=== PATIENT | female | born 1980 | race Caucasian/White ===

== ENCOUNTER 2017-07-07 03:05 | Emergency (ER) | payer BC ==
[~2017-07-07] VITALS: Ht 162.6 cm; Wt 97.5 kg
[~2017-07-07 03:05] MED LIST: ABILIFY 2 MG2 MG; ALBUTEROL2.5 MG/3 M INH; AMBIEN 10 MG TA10 MG; ASPIR 8181 M1 PO; BENTYL; BENTYL 20 MG TA20 M1 PO; BENZTROPINE MESY2 MG; BIRTH CONTROL; CELEXA 20 MG TA20 M1; CLONAZEPAM; DEPAKOTE ER500 MG PO; DOXYCYCLINE 10100 M1 PO; DUONEB 2.5-0.5 M3 ML INH; ENPRESSE1 EACH PO; ERYTHROMYCIN250 MG; HYDROXYCHLOROQ200 M1 PO; HYOMAX-DT0.375 MG PO; LAMICTAL 25 MG25 M1; LEXAPRO; MAGNESIUM OXID200 MG PO; MAGNESIUM250 M1 PO; MEDROLDOSEPACK PO; MIDRIN CAPSULE1 CAP PO; MISCELLANEOUS; NAPROSYN500 MG PO; NATAZIA 28 TAB1 EACH PO; NEURONTIN 300300 M1 PO; NORCO 5-325 TA1 EACH PO; OMEPRAZOLE20 M2 PO; ORENCIA125 MG/1 M IM; OSTERA TABLET1 EAC1 PO; OXYBUTYNIN 5 MG5 M2; PORTIA1 EACH PO; PROAIR HFA8.5 GM INH; PROTONIX40 M4 PO; PROZAC20 MG PO; ROBAXIN500 MG PO; TRAZODONE HCL100 MG PO; TRILEPTAL 300300 MG PO; UNICOMPLEX M TA1 TA1 PO; VENTOLIN HFA 1818 GM INH; VICODIN 5-5001 EACH PO; VITAMIN B-12500 MCG PO; VITAMIN D1000 UNI1 PO; VITAMIN D31000 UNI2 PO; WELLBUTRIN; XANAX 0.25 MG0.25 MG PO; ZOFRAN 4 MG ORAL4 MG PO; ZOFRAN ODT4 MG PO; ZOLOFT 50 MG TA50 M1 PO; ZPAK PO; [UNRECOGNIZED DRUG - REMARK]
[2017-07-07] MEDS ORDERED: ARAVA20 MG (03:17)
[2017-07-07] MEDS ORDERED: TRILEPTAL150 MG (03:17)
[2017-07-07 03:46] LABS: ABSOLUTE EOSINOPHILS 0.1 thou/uL (0.0-0.7); ABSOLUTE LYMPHOCYTES 2.4 thou/uL (0.8-5.3); ABSOLUTE MONOCYTES 0.8 thou/uL (0.0-1.2); ABSOLUTE NEUTROPHILS 8.1 thou/uL (1.6-8.1); BASOPHILS 0.2 %; HEMATOCRIT 40.1 % (37.0-47.0); HEMOGLOBIN 13.4 gm/dL (12.0-15.0); LYMPHOCYTES 20.7 %; MCH 28.1 pg (26.0-34.0); MCHC 33.4 g/dL (28.0-37.0); MCV 84.3 fL (80.0-100.0); MONOCYTES 7.2 %; MPV 8.4 fl. (7.2-11.1); NUCLEATED RBCS 0 /100WBC; PLATELET COUNT* 270 thou/uL (150-400); POLYS 70.9 %; RBC 4.75 mil/uL (4.20-5.00); RDW-CV 14.3 % (10.5-14.5); WBC 11.4 thou/uL (4.0-11.0)
[2017-07-07 03:52] LABS: ANION GAP 11 mmol/L (7-16); BUN 12 mg/dL (7-18); CALCIUM 9.3 mg/dL (8.5-10.1); CHLORIDE 102 mmol/L (98-107); CO2 27 mmol/L (21-32); CREATININE 0.8 mg/dL (0.6-1.3); GLUCOSE 104 mg/dL (70-99); POTASSIUM 3.1 mmol/L (3.5-5.1); SODIUM 140 mmol/L (136-145)
[2017-07-07 03:56] LABS: ALBUMIN 3.6 g/dL (3.4-5.0); ALKALINE PHOSPHATASE 122 U/L (46-116); LIPASE 184 U/L (73-393); SGOT 46 U/L (15-37); SGPT 40 U/L (30-65); TOTAL BILIRUBIN 0.4 mg/dL (<0.1-1.0); TOTAL PROTEIN 7.4 g/dL (6.4-8.2)
[2017-07-07 03:58] LABS: TROPONIN-I LEVEL <0.06 ng/mL (<0.06)
[2017-07-07 04:18] LABS: INR 1.1; PROTIME 10.3 Seconds (9.20-11.50)
[2017-07-07 04:49] LABS: URINE BILIRUBIN NEGATIVE (Negative); URINE BLOOD NEGATIVE (Negative); URINE CLARITY CLEAR; URINE COLOR YELLOW; URINE GLUCOSE-RANDOM NEGATIVE (Negative); URINE KETONES NEGATIVE (Negative); URINE LEUKOCYTES-REFLEX NEGATIVE (Negative); URINE NITRITE-REFLEX NEGATIVE (Negative); URINE PROTEIN NEGATIVE (Negative); URINE UROBILINOGEN 0.2 E.U./dl (0.2-1.0)
[2017-07-07 04:59] LABS: AMP/METHAMP Negative (Negative); BARBITURATES Negative (Negative); BENZODIAZEPINES Negative (Negative); COCAINE Negative (Negative); METHADONE Negative (Negative); OPIATES POSITIVE (Negative); PCP Negative (Negative); THC Negative (Negative)
[2017-07-07] MEDS ORDERED: CARAFATE 1 GM TA1 GM PO (06:57)
[2017-07-07] MEDS ORDERED: HYDROCODON-ACE1 EA14 PO (06:57)
[2017-07-07] MEDS ORDERED: PREDNISONE50 MG PO (06:57)
[2017-07-07 07:10] VITALS: BP 124/45
--- NOTE | 2017-07-07 12:32 | EKG ---
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 : 1980 Requested By: Kayleigh Duffy Order Number: [id number] MD: Imer Guerrero Measurements Intervals [place] Rate: 103 P: 57 W[place]: 157 QRS: 67 QRSD: 86 T: -33 QT: 369 QTc: 483 Interpretive Statements Sinus tachycardia Borderline T abnormalities, inferior leads Compared to ECG 05/08/2014 10:08:07 T-wave abnormality still present Electronically Signed On 07-07-2017 12:31:55 BAT LATHE OPERATOR by Imer Guerrero [email or web address] <ELECTRONICALLY SIGNED> By: Imer Guerrero MD, [facility] 07/07/17 1231 310 9 Imer Guerrero MD, FACC /EPI
== END 2017-07-07 07:11 | disposition home or self-care (01) ==
LOC: M.ERS 03:05
PROVIDERS: Emergency Medicine
DX: R09.1 Pleurisy (principal); R10.9 Unspecified abdominal pain; K21.9 Gastro-esophageal reflux disease without esophagitis; J45.909 Unspecified asthma, uncomplicated; M06.9 Rheumatoid arthritis, unspecified; F31.9 Bipolar disorder, unspecified; Z90.49 Acquired absence of other specified parts of digestive tract; Z88.1 Allergy status to other antibiotic agents; Z88.2 Allergy status to sulfonamides; Z88.5 Allergy status to narcotic agent; Z91.040 Latex allergy status; Z88.8 Allergy status to other drugs, medicaments and biological substances

== ENCOUNTER → 2017-08-17 | Outpatient (CLI) | payer BC ==
[~2017-08-17] MED LIST changes: +ARAVA20 MG; +CARAFATE 1 GM TA1 GM PO; +HYDROCODON-ACE1 EA14 PO; +PREDNISONE50 MG PO; +TRILEPTAL150 MG
== END ==
LOC: M.MRI 12:54
DX: H53.9 Unspecified visual disturbance (principal); R20.0 Anesthesia of skin; R20.2 Paresthesia of skin; G95.9 Disease of spinal cord, unspecified; H46.9 Unspecified optic neuritis

== ENCOUNTER → 2017-08-18 | Outpatient (CLI) | payer BC | LOC: M.MRI 08-11 14:34 | DX: M51.27 Other intervertebral disc displacement, lumbosacral region (principal); M54.16 Radiculopathy, lumbar region; R20.2 Paresthesia of skin; G95.9 Disease of spinal cord, unspecified; H53.9 Unspecified visual disturbance; H46.9 Unspecified optic neuritis ==

== ENCOUNTER → 2019-02-22 | Outpatient (CLI) | payer BC ==
--- NOTE | 2019-02-22 14:48 | NUR ---
ARRIVED AMBULATORY MADE SELF COMFORTABLE. HISTORY REVIEWED. COPY OF PORT A CATH CARD MADE AND PLACED IN CHART. PT REPORT DIFFICULTY ACCESSING PORT AT ANOTHER HOSPITAL. PORT ASSESSED AND NO SIGN OF INFECTION NOTED. PORT NOTED TO SIGHTLY DOWNWARD. PORT ACCESSED WITH OUT DIFFICULTY. GOOD BRISK BLOOD RETURN NOTED AND FLUSHED WITH EASE. PORT FLUSHED AND DEACCESSED. TOLERATED WELL. DENIES QUESTIONS OR NEEDS AT DISCHARGE.
== END ==
LOC: M.INFUS 14:13
DX: Z45.2 Encounter for adjustment and management of vascular access device (principal)

== ENCOUNTER → 2019-04-19 | Outpatient (CLI) | payer BC | LOC: M.INFUS 03-22 13:00 | DX: Z45.2 Encounter for adjustment and management of vascular access device (principal) ==

== ENCOUNTER → 2019-06-03 | Outpatient (CLI) | payer BC | LOC: M.INFUS 05-17 14:00 | DX: Z45.2 Encounter for adjustment and management of vascular access device (principal) ==

== ENCOUNTER → 2019-07-02 | Outpatient (CLI) | payer BC ==
[2019-07-02 09:30] VITALS: BP 111/61
== END ==
LOC: M.INFUS 09:00
DX: Z45.2 Encounter for adjustment and management of vascular access device (principal)

== ENCOUNTER → 2019-08-06 | Outpatient (CLI) | payer BC ==
--- NOTE | 2019-08-06 09:33 | NUR ---
ARRIVED AMBULATORY. MADE SELF COMFORTABLE IN RECLINER. PORT A CATH INTACT WITH NO SIGN OF INFECTION. PORT ACCESSED WITH OUT DIFFICULTY. GOOD BRISK BLOOD RETURN NOTED AND FLUSHED WITH EASE. PORT FLUSHED AND DEACCESSED. TOLERATED WELL. DENEIS QUESTIONS OR NEEDS AT DISCHARGE.
== END ==
LOC: M.INFUS 03:25
DX: Z45.2 Encounter for adjustment and management of vascular access device (principal)

== ENCOUNTER → 2019-09-03 | Outpatient (CLI) | payer BC ==
--- NOTE | 2019-09-03 09:36 | NUR ---
ARRIVED AMBULATORY. MADE SELF COMFORTABLE IN RECLINER. PORT A CATH ACCESSED WITH OUT DIFFICULTY. GOOD BRISK BLOOD RETURN NOTED AND FLUSHED WITH EASE. PORT FLUSHED AND DEACCESSED. DENIES QUESTION OR NEED AT DISCHARGE.
== END ==
LOC: M.INFUS 04:46
DX: Z45.2 Encounter for adjustment and management of vascular access device (principal)

== ENCOUNTER → 2019-10-03 | Outpatient (CLI) | payer BC | LOC: M.INFUS 05:00 | DX: Z45.2 Encounter for adjustment and management of vascular access device (principal) ==

== ENCOUNTER → 2019-12-24 | Outpatient (CLI) | payer BC ==
[2019-12-24 09:32] VITALS: BP 110/62
== END ==
LOC: M.INFUS 05:31
PROVIDERS: ATTEND Family Medicine
DX: Z45.2 Encounter for adjustment and management of vascular access device (principal)

== ENCOUNTER → 2020-01-24 | Outpatient (CLI) | payer BC ==
--- NOTE | 2020-01-24 09:37 | NUR ---
ARRIVED AMBULATORY. MADE SELF COMFORTABLE IN RECLINER. PORT ACCESSED WITH OUT DIFFICULT. GOOD BRISK BLOOD RETURN NOTED AND FLUSHED WITH EASE. PORT FLUSHED THEN DEACCESSED. TOELRATED WELL. DENIES QUESTION OR NEEDS AT DISCHARGE
== END ==
LOC: M.INFUS 03:57
PROVIDERS: ATTEND Family Medicine
DX: Z45.2 Encounter for adjustment and management of vascular access device (principal)

== ENCOUNTER 2020-06-01 22:34 | Emergency (ER) | payer BC ==
[~2020-06-01] VITALS: Ht 162.6 cm; Wt 90.7 kg
[2020-06-01] MEDS ORDERED: TOPAMAX25 M1 (22:54)
[2020-06-01] MEDS ORDERED: CORLANOR7.5 MG (22:54)
[2020-06-01] MEDS ORDERED: SINGULAIR 10 MG10 M1 (22:54)
[2020-06-01] MEDS ORDERED: METHOTREXATE (22:55)
[2020-06-01] MEDS ORDERED: TOPAMAX50 MG (22:55)
[2020-06-01] MEDS ORDERED: FOLIC ACID1 MG (22:55)
[2020-06-01] MEDS ORDERED: FLECAINIDE PO (22:56)
[2020-06-01] MEDS ORDERED: POTASSIUM20 (22:56)
[2020-06-01] MEDS ORDERED: IRON PO (22:57)
[2020-06-01] MEDS ORDERED: TRAZODONE HCL100 MG (22:57)
[2020-06-01] MEDS ORDERED: RINVOQ ER15 MG (22:58)
[2020-06-01] MEDS ORDERED: KLONOPIN0.5 MG (22:58)
[2020-06-01] MEDS ORDERED: MIDODRINE HCL 55 M1 (22:58)
[2020-06-01] MEDS ORDERED: ZENPEP DR 40,01 EACH (22:59)
[2020-06-01 23:51] LABS: ABSOLUTE BASOPHILS 0.1 thou/uL (0.0-0.2); ABSOLUTE EOSINOPHILS 0.1 thou/uL (0.0-0.7); ABSOLUTE LYMPHOCYTES 2.3 thou/uL (0.8-5.3); ABSOLUTE MONOCYTES 0.6 thou/uL (0.0-1.2); ABSOLUTE NEUTROPHILS 6.5 thou/uL (1.6-8.1); BASOPHILS 0.7 %; EOSINOPHILS 0.9 %; HEMATOCRIT 38.8 % (37.0-47.0); HEMOGLOBIN 13.2 gm/dL (12.0-15.0); LYMPHOCYTES 24.1 %; MCH 30.3 pg (26.0-34.0); MCHC 34.1 g/dL (28.0-37.0); MCV 88.8 fL (80.0-100.0); MONOCYTES 6.1 %; MPV 7.6 fl. (7.2-11.1); NUCLEATED RBCS 0 /100WBC; PLATELET COUNT* 280 thou/uL (150-400); POLYS 68.2 %; RBC 4.36 mil/uL (4.20-5.00); RDW-CV 13.2 % (10.5-14.5); WBC 9.6 thou/uL (4.0-11.0)
[2020-06-01 23:53] LABS: CALCIUM 8.7 mg/dL (8.5-10.1); CREATININE 0.9 mg/dL (0.6-1.3); POTASSIUM 3.5 mmol/L (3.5-5.1)
[2020-06-01 23:56] LABS: APTT 27.6 Seconds (25.0-31.3); PROTIME 10.8 Seconds (9.20-11.50)
[2020-06-01 23:58] LABS: ALBUMIN 3.6 g/dL (3.4-5.0); TOTAL BILIRUBIN 0.2 mg/dL (<0.1-1.0); TOTAL PROTEIN 7.3 g/dL (6.4-8.2)
[2020-06-02 00:13] LABS: URINE BILIRUBIN NEGATIVE (Negative); URINE BLOOD NEGATIVE (Negative); URINE CLARITY CLEAR; URINE COLOR YELLOW; URINE GLUCOSE-RANDOM NEGATIVE (Negative); URINE KETONES NEGATIVE (Negative); URINE LEUKOCYTES-REFLEX NEGATIVE (Negative); URINE NITRITE-REFLEX NEGATIVE (Negative); URINE PROTEIN NEGATIVE (Negative); URINE UROBILINOGEN 0.2 E.U./dl (0.2-1.0)
[2020-06-02 03:00] VITALS: BP 108/60
--- NOTE | 2020-06-02 13:13 | EKG ---
[place] [address] ELECTROCARDIOGRAM REPORT Name: YOSELIN JAQUEZ Room: [facility]#: [id number] Admission: 06/01/20 Attend Phys: Discharge: 06/02/20 Date of : 80 Date of Service: 06/01/20 224 Report #: [id number] THIS REPORT FOR: //name// [facility] ED Test Date: 2020-06-01 Test Time: 22:41:03 Pat Name: YOSELIN JAQUEZ Department: Room: Gender: Stock Controller: [facility] : 1980 Requested By: Tisha Dodson Order Number: [id number] MD: Imer Guerrero Measurements Intervals [place] Rate: 86 P: 16 PA: 150 QRS: 80 QRSD: 84 T: 28 QT: 373 QTc: 446 Interpretive Statements Sinus rhythm Compared to ECG 07/07/2017 03:10:48 Sinus tachycardia no longer present T-wave abnormality no longer present Electronically Signed On 06-02-2020 13:12:56 SPINNING MULE OPERATOR by Imer Guerrero [email or web address] <ELECTRONICALLY SIGNED> By: Imer Guerrero MD, [facility] 06/02/20 1312 2241 [id number] Imer Guerrero MD, [facility] /EPI
== END 2020-06-02 03:00 | disposition home or self-care (01) ==
LOC: M.ERS 22:34
PROVIDERS: Personal Emergency Response Attendant
DX: R07.89 Other chest pain (principal); M79.7 Fibromyalgia; J45.909 Unspecified asthma, uncomplicated; Z88.1 Allergy status to other antibiotic agents; Z88.6 Allergy status to analgesic agent; Z88.2 Allergy status to sulfonamides; Z91.040 Latex allergy status